=== PATIENT | male | born 1945 | race Caucasian/White ===

== ENCOUNTER 2017-10-26 08:29 | Inpatient (IN) | payer OTHER, MEDICAID ==
[~2017-10-26] VITALS: Ht 180.3 cm; Wt 65.3 kg
[2017-10-26] VITALS (9 sets, daily range): BP systolic 77–99; BP diastolic 36–52; Ht 180.3 cm; Wt 65.3 kg
[~2017-10-26 08:29] MED LIST: ALBUD HHN; ASPIRIN ADULT L81 M1 PO; ASPIRIN ADULT L81 M5 PO; ATROVENT; ATRUD; COL100 PO; CRANBERRY450 M1 PO; DEPL PO; DSS100 M1 PO; FLO1 PO; FLORINEF PO; LORAZEPAM0.5; MELATONIN; MELATONIN3 MG PO; METOPROLOL25 MG PO; MOM; MOM PO; MULTIVITAMINS PO; NIT0.4 SL; PEP20 PO; POTASSIUM CL; RAZADYNE12 MG PO; THERA PLUS PO; TYL325 PO; TYLENOL PO; ULT50 PO; ULTRAM50 MG PO; VITAMIN C500 MG PO; XARELTO PO; XARELTO20 M1 PO; ZES10 PO; ZOC10 PO; ZYP5; [UNRECOGNIZED DRUG - OTHER] PO; [UNRECOGNIZED DRUG - OTHER] PO
[2017-10-26] MEDS ORDERED: ZESTRIL5 MG PO (09:42)
[2017-10-26 09:43] LABS: PLATELET COUNT 258 x10^3mcL (130-400); RED CELL DISTRIBUTION WIDTH 14.4 % (11.5-14.5)
[2017-10-26 09:59] LABS: CK-MB 3.1 ng/mL (0-3.6)
[2017-10-26 10:12] LABS: ALKALINE PHOSPHATASE 87 U/L (46-116); ALT/SGPT 29 U/L (16-63); AST/SGOT 45 U/L (15-37); BILIRUBIN TOTAL 0.7 mg/dL (0.20-1.00); CALCIUM 9.1 mg/dL (8.5-10.1); CARBON DIOXIDE 30.7 mmol/L (21-32); CHLORIDE SERUM 114 mmol/L (98-107); GLUCOSE SERUM 153 mg/dL (74-106); POTASSIUM SERUM 4.4 mmol/L (3.5-5.1); SODIUM SERUM 153 mmol/L (136-145); TOTAL PROTEIN, SERUM 7.3 g/dL (6.4-8.2)
[2017-10-26 10:44] LABS: ALBUMIN 2.1 g/dL (3.4-5.0)
[2017-10-26 10:48] LABS: CREATININE SERUM 4.4 mg/dL (0.7-1.3)
[2017-10-26 11:21] LABS: UA SPECIFIC GRAVITY >=1.030 (1.005-1.035); microscopic required? YES; urine erythrocyte 1+ (NEGATIVE)
[2017-10-26 12:09] LABS: C REACTIVE PROTEIN 55.2 mg/dL (<=0.9)
[2017-10-26 12:16] LABS: BAND NEUTROPHIL 1 % (0-10); BASOPHIL 0 % (0-2); MONOCYTE 3 % (0-7); PLATELET MORPHOLOGY PLATELETS NORMAL; SEGMENTED NEUTROPHILS 93 % (37-75); rbc morphology (normal/abnorm) ABNORMAL (NORMAL)
[2017-10-26 12:19] LABS: ERYTHROCYTE SED RATE 110 mm/hr (0-20)
[2017-10-26 12:45] LABS: T3 TOTAL 0.45 ng/mL
[2017-10-26 13:20] LABS: FREE T4 1.28 ng/dL (0.76-1.46); FREE THYROXINE INDEX 2.9 ug/dL (1.4-4.5); T4(THYROXINE) 7.1 ug/dL (4.7-13.3)
[2017-10-26 14:31] LABS: MAGNESIUM 2.5 mg/dL (1.8-2.4); PHOSPHOROUS 4.9 mg/dL (2.5-4.9)
[2017-10-26 14:42] LABS: AMPHETAMINE QUAL UR NONE DETECTED (NEG <=1000)
[2017-10-26 14:49] LABS: CHOLESTEROL/HDL RATIO 4.6
[2017-10-26] MEDS ORDERED: NAMENDA10 M2 PO (15:58)
[2017-10-26 21:37] LABS: IRON 17 ug/dL (65-170); TOTAL IRON BINDING CAPACITY 137 ug/dL (250-450)
== END 2017-10-27 00:34 | disposition expired | DRG 871 ==
LOC: ED 08:29 → DU 13:45 → IC 18:50 → DU 18:57 → IC 19:02
PROVIDERS: Specialist; Student in an Organized Health Care Education/Training Program
DX: A41.9 Sepsis, unspecified organism (principal); R65.21 Severe sepsis with septic shock; J69.0 Pneumonitis due to inhalation of food and vomit; J96.00 Acute respiratory failure, unspecified whether with hypoxia or hypercapnia; N17.0 Acute kidney failure with tubular necrosis; E43 Unspecified severe protein-calorie malnutrition; N39.0 Urinary tract infection, site not specified; L03.115 Cellulitis of right lower limb; E87.0 Hyperosmolality and hypernatremia; E86.0 Dehydration; G30.9 Alzheimer's disease, unspecified; F02.80 Dementia in other diseases classified elsewhere, unspecified severity, without behavioral disturbance, psychotic disturbance, mood disturbance, and anxiety; I48.2 Chronic atrial fibrillation; J44.9 Chronic obstructive pulmonary disease, unspecified; R73.03 Prediabetes; E83.41 Hypermagnesemia; E05.90 Thyrotoxicosis, unspecified without thyrotoxic crisis or storm; D64.9 Anemia, unspecified; Z68.20 Body mass index [BMI] 20.0-20.9, adult; Z99.3 Dependence on wheelchair; Z87.891 Personal history of nicotine dependence; Z79.01 Long term (current) use of anticoagulants; Z66 Do not resuscitate; Z51.5 Encounter for palliative care
CPT/HCPCS: 36600; 83880; 84439; J0171; J0696; J1170; J1642; J2310; J3230; J3490; J7030; J7620; Q0092